=== PATIENT | male | born 1960 | race Caucasian/White ===

== ENCOUNTER 2025-02-19 15:25 | Observation (INO) | payer OTHER, SELFPAY ==
[2025-02-19] VITALS (11 sets, daily range): BP systolic 127–204; BP diastolic 66–105; BMI 27.3; BMI 25.6
--- NOTE | 2025-02-19 11:34 | ED.GENMED ---
History of Present Illness
General
Chief Complaint: Visual Problem
Source: patient and spouse
Time Seen by Provider: 02/19/25 11:17
History of Present Illness
History of Present Illness:
64-year-old male with past medical history of hypertension, hyperlipidemia, ovh-xmfpqhm-rklwgldti diabetes presenting to the ER for evaluation of painless double vision that started yesterday around noon, constant and continued today prompting
to bring patient to the ER for further evaluation. Patient states that initially he felt his vision was a little bit more blurred but the vision became double, noticed that when he covered either right or left eye that the double vision would
resolve. Patient denies any headache, focal weakness or numbness, chest pain, shortness of breath, floaters or flashing light sensation, neck pain or stiffness, fevers or infectious symptoms or any other concerns. Denies any history of similar.
Patient follows regularly with ophthalmology due to his history of diabetes and notes that he has never had any abnormalities. Patient does not believe he has any family history of stroke but believes his mother may have had glaucoma as she did
eventually have blindness to 1 eye which she states was related to her eye pressures. Social history was otherwise noncontributory.
Past History
Past History
ED Past Medical History: GERD, HTN, Hypercholesterolemia and NIDDM
ED Past Surgical History: Other
Social History
Tobacco: Non-smoker
Alcohol: None
Drug: None
Personal:
Living: with family
Review of Systems
Review of Systems
All Other Systems: ROS reviewed and negative except as documented in HPI and ROS
Phy Exam
Physical Exam
Physical Exam:
GENERAL: Alert , in no apparent distress
HEAD: Normocephalic atraumatic
EYE: pupils equal and reactive, pupils 4 mm bilateral, EOMI, no visual field cuts, gross vision intact and equal bilateral
NECK: Supple, no meningismus
ENT: o/p clr, mmm.
CARDIAC: Regular rate and rhythm, faint systolic murmur at the left sternal border.
LUNGS: Clear breath sounds bilaterally, no acute respiratory distress, no wheezes/rales/rhonchi
NEUROLOGICAL: Alert and oriented, no focal neuro deficits, ambulated with steady gait, no dysmetria, no dysarthria, no aphasia, no facial drooping
SKIN: Warm and dry, skin intact.
MUSCULOSKELETAL: No edema, well perfused.
PSYCH: Normal and appropriate interaction.
Scores
NIH Stroke Score
Level of Consciousness: 0 - Alert
LOC Questions: 0-Answers both correctly
LOC Commands: 0-Performs both correctly
Best Horizontal Gaze: 0-Normal
Visual [place]: 0=Normal, no visual loss
Facial Palsy: 0=Normal, symmetrical
Motor - Right Arm: 0=No drift 10 seconds
Motor - Left Arm: 0=No drift 10 seconds
Motor - Right Le-No drift 5 seconds
Motor - Left Le-No drift 5 seconds
Limb Ataxia: 0-Absent
Sensation: 0-Normal
Best Language: 0-No aphasia
Dysarthria: 0-Normal
Extinction and Inattention: 0-No abnormality
Total Score:: 0
Heart Failure Risk
Heart Failure Risk Score: Not Applicable
Heart Score for Chest Pain Patients
STEMI patient?: Not applicable
Withdrawal Assessment of Alcohol
Withdrawal Assessment Completed?: Not applicable
Course
Orders/Labs/Results
Orders:
Orders
02/19/25 11:26
Electrocardiogram (*1) Stat
Reason for Study: Other
Other Reason for Exam: neuro symptoms
CT Head & Neck Angio W/wo IV Urgent
Comment:
Reason For Exam: double vision, BP 200/100
Cardiac Monitoring- Treatment ONCE
EKG- Treatment ONCE
02/19/25 11:34
Visual Acuity- Treatment ONCE
02/19/25 11:52
Basic Metabolic Panel Urgent
Complete Blood Count/With Diff Urgent
Erythrocyte Sed Rate Urgent
PTT Urgent
Prothrombin Time Urgent
Troponin I Urgent
02/19/25 13:18
Aspirin 325 mg PO NOW STA
Clopidogrel Bisulfate [Plavix] 75 mg PO NOW STA
02/19/25 15:08
Admit/Transfer Patient As Directed
Co-Sign Provider:
Level of Care: Observation services
Assign to:: Telemetry
Physician / Group: Raphael Cohen
Diagnosis: CVA/TIA, CN6 palsy
Reason for Telemetry: CVA/TIA
Date to Stop Telemetry: 02/22/25
Time to Stop Telemetry: 11:00
PRN Pain Medication Management As Directed
May give lesser potent ordered pain med per pt: Yes
preference::
Protocol:: Medication orders for pain may be administered in a
manner that supports deferring to patient preference
when the pt is:
- Requesting an ordered lesser potent pain medication.
Least to most potent pain medications are defined
as: acetaminophen < NSAID < tramadol < opioids
(morphine, oxycodone, hydromorphone).
- Requesting a lesser dose of the same medication IF
ORDERED.
- Requesting a less intrusive route of administration
if both routes are prescribed by the provider (PO <
IV).
02/19/25 15:13
Code Status As Directed
Resuscitation Status: Full Code
02/19/25 15:16
Add On- LAB Routine
Tests Added?: CMP
02/22/25 11:00
DC Protocol for Telemetry ONCE
Abnormal Lab Results
02/19/25
11:52
RBC 4.41 L 10^6/uL
(4.70-6.10)
Hct 37.3 L %
(39.0-52.0)
Glucose 138 H mg/dl
(70-99)
02/19/25 11:52
02/19/25 11:52
Vital Signs
Initial and Last Documented VS:
Initial Vital Signs
Temp Pulse Resp BP Pulse Ox
97.5 F 64 16 204/98 97
02/19/25 11:07 02/19/25 11:07 02/19/25 11:07 02/19/25 11:07 02/19/25 11:07
Last Documented Vital Signs
Temp Pulse Resp BP Pulse Ox
97.5 F 69 18 185/91 97
02/19/25 11:07 02/19/25 14:00 02/19/25 15:00 02/19/25 14:00 02/19/25 12:45
Certified Energy Manager consulted with Physician
Certified Energy Manager consulted with physician?: Yes
Name of Physician Consulted: Marcos
MDM/Problems Addressed
Differential Diagnosis Includes:
hypertensive urgency/emergency, CVA, retinal detachment/diabetic retinopathy, mass/malignancy, intracranial bleeding
MDM/Problems Addressed:
64-year-old male presented to the ER for painless blurred/double vision since noon yesterday, symptoms unchanged today. Found to be significantly hypertensive in triage as well as at time of my exam. I did not call a stroke alert as symptoms have
been ongoing for approximately 24 hours, low NIH score, not a TNK candidate. Will obtain plain head CT as well as CTA of the head and neck. Labs and EKG ordered. Will hold on ordering any antihypertensive medications at this time and will allow
for permissive hypertension. Will discuss case with neurology. I do anticipate admission.
*Radiology
Radiology exam reviewed: radiology read reviewed
*Pulse Oximetry
Patient hypoxic: no
*EKG
Interpreted by ED Provider?: Yes
Heart Rate: 58
Rate: bradycardiac
Rhythm: sinus
Interval: first degree heart block
QRS Pattern: right bundle branch block
*Material Attendant Interpretation
Rate: normal
Rhythm: sinus
*Critical Care Note
Total Time (30-74mins, 75-104mins- exclusive of procedures): Not Applicable
Patient Management
Discussion with other providers: Hospitalist and [employer]
Escalation/DeEscalation of care consider admission/obs:
Patient seen by neurology who is concerned for a pontine stroke and a cranial nerve palsy. Recommends treatment with dual action platelet therapy and admission to the hospitalist service for further imaging and management/close monitoring of
patient's blood pressure. Hospitalist team accepts for continued evaluation and treatment
ED Attending Note
-
Portions of this chart may have been created with voice recognition software.� Occasional wrong word or��sound alike� substitutions may have occurred due to the inherent limitations of voice recognition software.
Discharge Plan
Departure
Patient Disposition: Admit
Date of Disposition: 02/19/25
Time of Disposition: 14:30
Presentation/result/management discussed w/ accepting MD/DO: Hospitalist
Discharge Problem:
Ischemic cerebrovascular accident (CVA)
Interventions
Interventions:
*Risk Screen - Suicide Last Done: 02/19/25 11:07
*General Assessment Last Done: 02/19/25 12:02
*Neglect/Abuse Screening Last Done: 02/19/25 12:03
*ED- Fall Risk Assessment Last Done: 02/19/25 12:02
*ED COVID-19 Vaccine History Last Done: 02/19/25 12:02
ED- Neurological Assessment Last Done: 02/19/25 15:31
ED-EENT Assessment Last Done: 02/19/25 12:05
ED Swallowing Screen Last Done: 02/19/25 12:00
[2025-02-19 12:05] LABS: % Basophils 0.6 % (0-2); % Eosinophils 2.1 % (0-6); % Immature Granulocytes 0.5 % (0-0.5); % Lymphocytes 32.2 % (20.5-51.1); % Monocytes 6.9 % (1.7-9.3); % Neutrophils 57.7 % (42.2-75.2); Absolute Basophils 0.1 10^3/uL (0-0.2); Absolute Eosinophils 0.2 10^3/uL (0-0.7); Absolute Lymphocytes 2.6 10^3/uL (1.2-3.4); Absolute Monocytes 0.6 10^3/uL (0.1-0.6); Absolute Neutrophils 4.6 10^3/uL (1.4-6.5); Hematocrit 37.3 % (39.0-52.0); Hemoglobin 13.1 g/dL (13.0-18.0); Mean Corp Hgb Conc. 35.1 g/dL (33.0-37.0); Mean Corpuscular Hgb 29.7 pg (27.0-31.0); Mean Corpuscular Volume 84.6 fL (80.0-94.0); Mean Platelet Volume 9.5 fL (7.4-10.4); Nucleated Red Blood Cells % 0 % (-); Platelet Count 226 10^3/uL (130-400); Red Blood Cell Count 4.41 10^6/uL (4.70-6.10); Red Cell Dist. Width 12.3 % (11.5-14.5)
[2025-02-19 12:10] LABS: INR 0.89; PT 12.4 Sec (11.4-14.6)
[2025-02-19 12:11] LABS: APTT 28.6 Sec (23.4-35.0)
[2025-02-19 12:15] LABS: Blood Urea Nitrogen 16 mg/dl (9-20); Calcium 9.4 mg/dl (8.4-10.2); Carbon Dioxide 27 mmol/L (22-30); Chloride 105 mmol/L (98-107); Estimated Creatinine Clearance 97 ml/min; Glucose 138 mg/dl (70-99); Potassium 4.4 mmol/L (3.5-5.1); Sodium 141 mmol/L (135-145); eGFR > 60.00
[2025-02-19 12:23] LABS: Erythrocyte Sed Rate 1 mm/hour (0-20)
[2025-02-19 12:26] LABS: Troponin I < 0.012 ng/ml
--- NOTE | 2025-02-19 13:24 | CON.NEURO ---
Neuro Assessment/Plan
Assessment
stroke Left Hima on exam
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
Head CT imgs rev'd, normal
CTA head/neck imgs and report reviewed, no LVO, significant stenosis, or aneurysms.
Plan
ASA 324 + 81 daily
Plavix 300 + 75 daily
Lipitor 40
admit, tele, MRI brain, ECHO
completed 24 hrs permissive HTN
Consultation
Order
Date of Consultation: 02/19/25
Requesting Provider: Sander Myrick
Reason for Consult: double vision
Subjective/Objective
Subjective Data
Date of Service: February 19, 2025
from ED notes:
64-year-old male with past medical history of hypertension, hyperlipidemia, vdz-rwqtlml-yjfjcqpcg diabetes presenting to the ER for evaluation of painless double vision that started yesterday around noon, constant and continued today prompting
to bring patient to the ER for further evaluation. Patient states that initially he felt his vision was a little bit more blurred but the vision became double, noticed that when he covered either right or left eye that the double vision would
resolve. Patient denies any headache, focal weakness or numbness, chest pain, shortness of breath, floaters or flashing light sensation, neck pain or stiffness, fevers or infectious symptoms or any other concerns. Denies any history of similar.
Patient follows regularly with ophthalmology due to his history of diabetes and notes that he has never had any abnormalities.
horizontal binocular diplopia, the pictures align with right gaze and diverge with left gaze
Objective Data
Vital Signs
Temp Pulse Resp BP Pulse Ox
36.4 C 67 19 158/100 96
02/19/25 11:07 02/19/25 12:15 02/19/25 12:15 02/19/25 12:00 02/19/25 12:15
Lab Results
02/19/25 11:52
02/19/25 11:52
PT 12.4 Sec (11.4-14.6) 02/19/25 11:52
INR 0.89 02/19/25 11:52
APTT 28.6 Sec (23.4-35.0) 02/19/25 11:52
Sodium 141 mmol/L (135-145) 02/19/25 11:52
Potassium 4.4 mmol/L (3.5-5.1) 02/19/25 11:52
BUN 16 mg/dl (9-20) 02/19/25 11:52
Glucose 138 mg/dl (70-99) H 02/19/25 11:52
Calcium 9.4 mg/dl (8.4-10.2) 02/19/25 11:52
Patient Allergies
strawberry Allergy (Verified 02/19/25 11:10)
Unknown
Physical Exam
-
AAOx3, speech clear, language intact
VFF, EOMI, L NL flattening
Right pronator drift, subtle right sided weakness
sensation intact to pin/vibration
DTR 2+ symmetric
FNF intact
[2025-02-19] MEDS: PLAVIX 75 MG PO (13:30)
[2025-02-19] MEDS: ASPIRIN 325 MG PO (13:30)
--- NOTE | 2025-02-19 14:42 | HPS.HSE ---
Family Physician
-
Family Physician: Shen Ferreira
Chief Complaint
-
double vision
History of Present Illness
Patient is a 64-year-old male with past medical history significant for hypertension, hyperlipidemia, NIDDM and BPH who presented to [facility] for evaluation of double vision that started yesterday around noon. Patient reports yesterday he was getting
ready to leave house and when he walked outside he noticed that he was seeing double. He denies any pain and reports double vision was an abrupt onset with no improvement since yesterday. Patient states if he covers one eye the double vision does
resolve, when utilizing both eyes he is constantly having double vision. Patient denies any associated headache, weakness, dizziness, chest pain, shortness of breath or recent illness. Patient reports he follows routinely with ophthalmology r/t DM
and has never had an abnormalities.
Medical History
Past Medical History
Past Medical History: Reports Other
Additional Past Medical History:
hypertension
hyperlipidemia
NIDDM
BPH
Past Surgical History: Reports Other
Additional Past Surgical History:
hernia repair
Social History
Tobacco: Former Smoker (quit approximately 9 years ago )
Alcohol: Occasional
Drug: None
Personal:
Living: With Family
Employment: Retired
Family History
Family History: Other (Mother: CVA)
Allergies / Home Medications
Allergies reflects when Allergies were last updated in [employer].
Home Medications with original date entered in [employer]
Allergy/Medication List:
Allergies
Allergy/AdvReac Type Severity Reaction Status Date / Time
strawberry Allergy Unknown Verified 02/19/25 11:10
Home Medications
amlodipine 2.5 mg tablet 2.5 mg PO DAILY 02/19/25
aspirin 81 mg tablet,delayed release 81 mg PO DAILY 02/19/25
atorvastatin 20 mg tablet 20 mg PO HS 02/19/25
cyanocobalamin (vitamin B-12) 1,000 mcg tablet 1,000 mcg PO DAILY 02/19/25
glimepiride 2 mg tablet 2 mg PO DAILY 02/19/25
icosapent ethyl 1 gram capsule 1 g PO DAILY 02/19/25
metformin 1,000 mg tablet 1,000 mg PO BID 02/19/25
metoprolol succinate 50 mg tablet,extended release 24 hr 50 mg PO HS 02/19/25
olmesartan 40 mg tablet 40 mg PO HS 02/19/25
tamsulosin 0.4 mg capsule 0.4 mg PO HS 02/19/25
vitamins A,C,T-zlmx-qwdbqn 4,296 mcg-226 mg-90 mg capsule (PreserVision AREDS) 1 cap PO DAILY 02/19/25
Review of Systems
-
History Source: Patient
Constitutional: Reports No Symptoms
EENT: Reports Other (double vision )
Respiratory: Reports No Symptoms
Cardiac: Reports No Symptoms
Abdomen/GI: Reports No Symptoms
: Reports No Symptoms
Musculoskeletal: Reports No Symptoms
Skin: Reports No Symptoms
Neurological: Reports No Symptoms
Endocrine: Reports No Symptoms
Hematologic/Lymphatic: Reports No Symptoms
Psych: Reports No Symptoms
Physical Exam
Vital Signs
Vital Signs
Temp Pulse Resp BP Pulse Ox
97.5 F 69 18 185/91 97
02/19/25 11:07 02/19/25 14:00 02/19/25 14:00 02/19/25 14:00 02/19/25 12:45
Physical Exam
General: Well Developed, Well Nourished, No Apparent Distress, Comfortable and Conversant
HEENT: NormoCephalic, Moist mucous membranes, Atraumatic, PERRLA, [place] Conjunctivae, Nose Appears Normal and Ears Appear Normal
Respiratory: Clear; No Rales, Rhonchi or Crackles
Cardiac: S1/S2 and Regular Rhythm
Breast: Deferred by me
GI: Soft, Non Tender, Non Distended and Normal Bowel Sounds; No Organomegaly
Rectal: Deferred by Provider
Genito-urinary: Deferred by me
Musculoskeletal: No Clubbing, No Cyanosis and No Edema
Skin: Warm and IV/Catheter Site
Neuro: Awake, Alert, AO x 3, Nonfocal/grossly intact, Cranial Nerves Intact and No Sensory Deficits; No Facial Droop
Psych: Calm and Intact Judgment/Insight
Laboratory Results
-
02/19/25 11:52
02/19/25 11:52
Laboratory Results
PT 12.4 Sec (11.4-14.6) 02/19/25 11:52
INR 0.89 02/19/25 11:52
APTT 28.6 Sec (23.4-35.0) 02/19/25 11:52
Troponin I < 0.012 ng/ml 02/19/25 11:52
Data Reviewed
-
CT Scan: Report Reviewed by me (CT Brain: No acute intracranial process. Specifically, no evidence of acute hemorrhage. CTA Head: No significant arterial stenosis. No aneurysm. CTA Neck: No significant arterial stenosis. Moderate degenerative disc
disease of C5-C6. )
Medical Tests (Nuc Med, Echo, EKG etc): Report Reviewed by me (EKG: SINUS BRADYCARDIA WITH 1ST DEGREE A-V BLOCK RIGHT BUNDLE BRANCH BLOCK)
Lab Data: Labs Reviewed by me
Impression/Plan
-
IMPRESSION/PLAN:
#diplopia
CT Brain: No acute intracranial process. Specifically, no evidence of acute hemorrhage.
CTA Head: No significant arterial stenosis. No aneurysm.
CTA Neck: No significant arterial stenosis. Moderate degenerative disc disease of C5-C6.
EKG: SINUS BRADYCARDIA WITH 1ST DEGREE A-V BLOCK
RIGHT BUNDLE BRANCH BLOCK
- Admit to telemetry
- Neurology Consult
- start Plavix
- PRN hydralazine 5mg q6H SD for SBP > 165, DBP > 105
#hypertension
- continue amlodipine, metoprolol and olmesartan
- PRN hydralazine 5mg q6H SD for SBP > 165, DBP > 105
#hyperlipidemia
- continue atorvastatin
#NIDDM
- hold
- AccuCheck AC & HS
- SSI
#BPH
- continue tamsulosin
Code status: full code
DVT prophylaxis: SCDs
--- NOTE | 2025-02-19 14:55 | W.PN.UPDATE ---
Update Note
Progress Note Update
This note serves as an addendum to the H&P by outreach associate ZHANNA Radha Sheridan
HPI
64M Non smoker , Rt handed HX T2DM, HTN, HLD seen at ER
- painless and constant double vision that started yesterday around noon,
- today prompting to bring patient to the ER for further evaluation.
- Initially he felt his vision was a little bit more blurred but the vision became double, noticed that when he covered either right or left eye that the double vision would resolve.
Patient follows regularly with ophthalmology due to his history of diabetes and notes that he has never had any abnormalities.
ROS:
denies any headache, focal weakness or numbness, chest pain, shortness of breath, floaters or flashing light sensation, neck pain or stiffness, fevers or infectious symptoms or any other concerns.
Vital Signs
Temp Pulse Resp BP Pulse Ox
97.5 F 69 18 185/91 97
02/19/25 11:07 02/19/25 14:00 02/19/25 14:00 02/19/25 14:00 02/19/25 12:45
PE
Gen: NAD. Not toxic
HEENT:symmetric face
Neck: supple
Lungs: CTA
Cor: RRR S1 S2
Abdomen: soft NG NRT
QUANTITATIVE MANAGER: ER BUTCHER ASSISTANT NIH stroke score - Zero
MS: no edema , symmetric tone and strength in all limbs
Psych:appropriate
Abnormal Lab Results
02/19/25
11:52
RBC 4.41 L
Hct 37.3 L
Glucose 138 H
EKG
SINUS BRADYCARDIA WITH 1ST DEGREE A-V BLOCK
RIGHT BUNDLE BRANCH BLOCK
ABNORMAL ECG
NO PREVIOUS ECGS AVAILABLE
Confirmed by MD LENNY, SHEMAR ([id number]) on 02/19/2025 2:16:[address] Head & Neck Angio W/wo IV
- CT Brain: No acute intracranial process. Specifically, no evidence of acute hemorrhage.
- CTA Head: No significant arterial stenosis. No aneurysm.
- CTA Neck: No significant arterial stenosis. Moderate degenerative disc disease of C5-C6.
ASSESSMENT & PLAN
Acute diplopia for more than 24 Hrs
Seen by Neurologist and Dxed Pontine stroke with CN6 palsy
Associated HTN emergency
- No stroke alert called
- Goal BP is Normotensive - d/w Neuro
- c/w DAPL
- Increased Atorvastatin to 40mg HS in place of DIE MAKER APPRENTICE 20mg HS
- A1C and Lipds
- ECHO
- Brain MRI in AM
- Neuro consulted
Associated HTN emergency
HX Benign HTN
- Goal BP is normotensive - d/w Neuro
- add IV Hydralazine 5mg q6H NC for SBP > 165, DBP > 105
- c/w DIE MAKER APPRENTICE Olmesartan , Amlodipine and Metoprolol XL if SBP < 115/65
DMT2
- Hold Metformin
- c/w Glimepiride 2mg daily
- add ISS low
BPH
- on Flomax
DVT Px: SCD
Full code
IP TLM
--- NOTE | 2025-02-19 15:18 | CM ---
CM met with pt, spouse/Mona and dtr/Yolanda
Pt resides with his spouse in a 2[address] with 1 [address], full flight to 2nd floor
Pt is indep with his ADLs, denies use of DMEs
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
Denies financial insecurities
PCP- Shen Watts
Rx- [facility]
Discharge Disposition- anticipate home, watch for needs
[2025-02-19] MEDS: APRESOLINE 5 MG IV (16:07)
[2025-02-19 16:48] LABS: ALT (SGPT) 22 U/L (0-50); AST (SGOT) 22 U/L (17-59); Albumin 4.3 g/dl (3.5-5.0); Alkaline Phosphatase 82 U/L (38-126); Total Bilirubin 0.8 mg/dl (0.2-1.3); Total Protein 6.8 g/dl (6.3-8.2)
[2025-02-19] MEDS: TRANDATE 10 MG IV (17:52)
[2025-02-19 17:53] LABS: Glucose - Point of Care 180 mg/dl (70-99)
[2025-02-19] MEDS: LIPITOR 40 MG PO (17:54)
[2025-02-19] MEDS: NOVOLOG FLEXPEN-LOW RESISTANCE 1 UNITS SC (18:07)
[2025-02-19 21:14] LABS: Glucose - Point of Care 161 mg/dl (70-99)
[2025-02-19] MEDS: TOPROL XL 50 MG PO (21:49)
[2025-02-19] MEDS: BENICAR 40 MG PO (21:49)
[2025-02-19] MEDS: FLOMAX 0.4 MG PO (21:49)
[2025-02-20 03:07] VITALS: BP 111/61
[2025-02-20 04:32] LABS: Urine Albumin Negative (Neg - Trace); Urine Bilirubin Negative (Negative); Urine Character Clear (Clear); Urine Color Yellow; Urine Glucose Negative (Negative); Urine Ketone Negative (Negative); Urine Leukocyte 1+ (Negative); Urine Nitrite Negative (Negative); Urine Occult Blood 1+ (Negative); Urine Specific Gravity 1.005 (<1.030); Urine Urobilinogen Negative (Neg - 1+)
[2025-02-20 05:04] LABS: Urine Bacteria Few (Negative); Urine White Cell 0-2 /HPF (0-5)
--- NOTE | 2025-02-20 07:12 | W.PN.HOSP.TC ---
Addendum entered and electronically signed by Dewayne Sarkar MD 02/20/25 22:49:
Attending Addendum:
I saw and evaluated the patient. I reviewed the resident�s note and agree with findings and plan as documented in the resident�s note. Sub: continues to have diplopia no other neuro sx. Seen with and daughter. No 'i would like to go home' Full
12 point ROS reviewed and negative except as documented Exam: Vitals reviewed in chart GEN-NAD heart RRR lungs clear abd soft LE no edema Neuro AAO x 3 diplopia resolved with closing left eye no ptosis EOMI no palsies noted MS 5/5 sensation intact
Plan:
#Monocular diplopia
CT Brain: No acute intracranial process. Specifically, no evidence of acute hemorrhage.
CTA Head: No significant arterial stenosis. No aneurysm.
CTA Neck: No significant arterial stenosis. Moderate degenerative disc disease of C5-C6.
EKG: SINUS BRADYCARDIA WITH 1ST DEGREE A-V BLOCK
RIGHT BUNDLE BRANCH BLOCK
- Neurology Consult
- start Plavix
- cont DAPT x 21 days then cont plavix DC asa therafter
- MRI- no acute infacrt
- Echo WNL No WMA ef 65-70%
- PT OT speech
- DC home with OP f/u optho eval d/w patient and family
#Hypertension
- continue amlodipine, metoprolol and olmesartan
- PRN hydralazine 5mg q6H VA for SBP > 165, DBP > 105
#hyperlipidemia
- continue atorvastatin
#NIDDM
- restart glim and metformin on DC
- AccuCheck AC & HS
- SSI
#BPH
- continue tamsulosin
Code status: full code
DVT prophylaxis: SCDs
Dispo DC home with
Time spent coordinating care, DC planning, review of DC plan of care with resident, transition of care, review of records, med rec/scripts sent electronically, consults, notes, d/w consultants, nursing, family, and CM� 33 mins
Original Note:
Today's Communication/Plan
-
Pending ECHO
Pending Brain MRI
D/c on 21d Aspirin/Plavix
Assessment / Plan
Assessment / Plan
64 year old man who presented with complaints of double vision
CT Head & Neck Angio W/wo IV
- CT Brain: No acute intracranial process. Specifically, no evidence of acute hemorrhage.
- CTA Head: No significant arterial stenosis. No aneurysm.
- CTA Neck: No significant arterial stenosis. Moderate degenerative disc disease of C5-C6.
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
- neuro following; appreciate recs
- C/w DAPT
- Increased Atorvastatin to 40mg
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
- pending Echo today
- Pending MRI Brain today
#Hypertensive Urgency
- 204/98, with other initial readings in the 180s-190s/90-100s w/o ACS symptoms
- Troponin negative
- ECG showing sinus pedro w/ 1st degree block
- Hydralazine prn
- reports a diagnosis of sleep apnea but does not use CPAP. Explained to him the value of CPAP, the consequences of not using one including worsening BPs despite triple medications, and that increased/uncontrolled BP can lead to stroke.
#Essential Hypertension - c/w home amlodipine, metoprolol succinate, olmesartan
#Hyperlipidemia
- pending lipid panel
- c/w atorvastatin (increased to 40mg as above), aspirin
#NIDDM
- pending A1C
- c/w hold metformin/Vascepa, c/w glimepiride
- On LDISS
#BPH - c/w tamsulosin
#Vitamin B12 Deficiency - c/w B 12 supplementation
Diet: Diabetic Diet
DVT PPx: SCDs
Code Status: Full Code
Anticipated Discharge: 24 - 48 hours
Subjective/Interval History
-
Date of Service: February 20, 2025
Feeling well this morning, no CV symptoms. His vision has improved somewhat, still worse on the Left side. He reports that his vision is best when looking to the right and worsens as he looks toward the midline and then to the left. No headache, eye
pain, dizziness, visual field loss.
Objective Data
-
Vital Signs:
Vital Signs
Temp Pulse Resp BP Pulse Ox
97.6 F 57 18 111/61 96
02/20/25 03:07 02/20/25 03:07 02/20/25 03:07 02/20/25 03:07 02/20/25 03:07
Review of Systems
-
History Source: Patient
Constitutional: Reports No Symptoms
EENT: Reports Blurry Vision
Respiratory: Reports No Symptoms
Cardiac: Reports No Symptoms
Abdomen/GI: Reports No Symptoms
Genitourinary: Reports No Symptoms
Musculoskeletal: Reports No Symptoms
Neuro: Denies Dizzy, Headache or Lightheadedness
Physical Exam
-
General: Well Developed, Well Nourished, No Apparent Distress, Comfortable and Conversant
HEENT: Normocephalic, Atraumatic, Moist Mucous Membranes, Anicteric, [place] Conjunctivae, PERRLA, Nose Appears Normal, Ears Appear Normal and Other (EOM intact BL, L sided visual field deficit compared to the R. )
Respiratory: Clear to Auscultation; Negative Wheezes, Rales or Rhonchi
Cardiac: Regular Rhythm, S1/S2 and Murmur (Systolic murmur, w/ radiation into the carotids L>R)
GI: Soft, Nontender, Nondistended and Normal Bowel Sounds
Genito-urinary: No Costovertebral Tender
Musculoskeletal: No Clubbing, No Cyanosis and No Edema
Skin: Warm and Dry
Neuro: Awake, Alert and Oriented
[2025-02-20 07:36] VITALS: BP 164/87
[2025-02-20 07:44] LABS: Glucose - Point of Care 187 mg/dl (70-99)
[2025-02-20] MEDS: NOVOLOG FLEXPEN-LOW RESISTANCE 1 UNITS SC (08:11)
[2025-02-20] MEDS: NORVASC 2.5 MG PO (08:12)
[2025-02-20] MEDS: AMARYL 2 MG PO (08:12)
[2025-02-20] MEDS: OCUVITE SOFTGEL 1 CAP PO (08:12)
[2025-02-20] MEDS: VITAMIN B-12 1000 MCG PO (08:12)
[2025-02-20] MEDS: ASPIR LOW (ENTERIC COATED) 81 MG PO (08:12)
[2025-02-20 08:50] LABS: HDL Cholesterol 28 mg/dl; LDL Cholesterol, Calculated 91 mg/dl; Total Cholesterol 156 mg/dl (50-199); Triglyceride 186 mg/dl (10-149); Very Low Density Lipoprotein 37 mg/dl (0-30)
[2025-02-20 09:07] LABS: Glycohemoglobin (HgbA1c) 6.9 % (4.0-5.6)
--- NOTE | 2025-02-20 09:27 | PTOTSP ---
Dysphagia Eval
Oral/pharyngeal swallowing suspected to be grossly within functional limits based on clinical bedside swallowing evaluation. No overt s/s of aspiration. Cannot r/o silent aspiration bedside.
No signs concerning for dysarthria or aphasia in conversation.
Recommend:
1. Regular, Thin
2. Meds as best tolerated
3. General aspiration precautions
4. Oral care 2-3x day
5. Will f/u pending results of MRI of Brain (not yet completed). Consider video swallow study as appropriate to r/o pharyngeal deficits/silent aspiration if stroke found.
[2025-02-20 11:18] VITALS: BP 150/95
[2025-02-20] MEDS: PLAVIX 75 MG PO (11:21)
[2025-02-20 11:26] LABS: Glucose - Point of Care 231 mg/dl (70-99)
--- NOTE | 2025-02-20 11:43 | CON.NEURO ---
Neuro Assessment/Plan
Assessment
stroke Left Hima on exam
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
Head CT imgs rev'd, normal
CTA head/neck imgs and report reviewed, no LVO, significant stenosis, or aneurysms.
Plan
ASA 324 + 81 daily
Plavix 300 + 75 daily
Lipitor 40
admit, tele, MRI brain, ECHO
completed 24 hrs permissive HTN
Consultation
Order
Date of Consultation: 02/20/25
Neurology follow-up note
HPI: This is a 64-year-old man who presented to [facility] on February 19, 2025 with motor and visual deficits. According to the patient he has had intermittent binocular horizontal painless diplopia worse with left lateral gaze. No
reports of headaches, change in speech, strength, swallowing or sensation.
ER VS: 204/98, 64, afebrile
EKG: Sinus bradycardia at 58 with first-degree AV block, RBBB, QTc Int : 453 ms
Labs: LDL�91, hemoglobin A1c�6.9
Brain MRI wo [place] (02/20/2025)�no evidence of acute infarct
CTA�no evidence of hemodynamically significant stenosis
Brain MRI�no evidence of acute infarct
PMH: HTN, DLP, DM, vitamin B12 deficiency, BPH
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
FH: Father�Parkinson disease, stroke
All:NKDA
ROS: Constitutional: Negative. Negative for chills, fever and unexpected weight change.
HENT: Negative for ear pain, hearing loss, tinnitus and trouble swallowing.
Eyes: Negative. Negative for photophobia, pain and visual disturbance.
Respiratory: Negative for cough, choking and shortness of breath.
Cardiovascular: Negative for chest pain, palpitations and leg swelling.
Gastrointestinal: Negative for abdominal pain and vomiting.
Endocrine: Negative. Negative for cold intolerance.
Genitourinary: Negative for urinary urgency
Musculoskeletal: Negative for back pain, gait problem, neck pain and neck stiffness.
Skin: Negative for rash.
Allergic/Immunologic: Negative. Negative for immunocompromised state.
Neurological: Positive for diplopia
Psychiatric/Behavioral: Negative for behavioral problems, confusion and hallucinations.
General: Well developed. In no acute distress.
Cardio: Regular rate and rhythm without murmur. Extremities are without cyanosis or edema.
Neuro:
Mental Status: Alert, oriented to person, place, and date. Normal attention and recall. Good fund of knowledge. Follows complex requests across the midline. Comprehension, naming, and repetition intact.
Cranial Nerves: Pupils are equally round and reactive to light. EOMs full. Visual padilla full to confrontation. No ptosis. No nystagmus. V1-V3 intact to light touch and pinprick bilaterally, symmetric. Face symmetric. Normal hearing AU. The
palate elevated well. SCMs and traps 5/5. Tongue midline. No dysarthria.
Motor: Normal bulk and tone. No pronator or arm drift. Strength 5/5 throughout. No clonus.
Reflexes: 2+ throughout the upper extremities and knees. Plantar responses flexor bilaterally.
Sensory: Normal vibration and JPS.
Coordination: No dysmetria or tremor.
Gait: deferred
Assessment and Plan:
I. 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 Differential diagnosis includes disorders of muscle and restrictive syndromes (isolated weakness of lateral rectus muscle, thyroid eye disease or less likely myasthenia gravis), central disorders (spasm
of the near reflex).
II. Hypertensive emergency
III. DM
-Please provide an eye patch
-Continue DAPT for 3 weeks
-Outpatient ophthalmology evaluate
-May consider Mestinon 30-60 mg 3 times daily in case of ptosis, dysarthria should occur
- Strict blood pressure glycemic and lipid control
-Patient neurology follow-up
- Case was discussed with patient's family
I personally reviewed all radiology and labs along with past medical records pertinent to current medical problems. Total time spent in patient care is 45 minutes.
Thank you for allowing us to participate in the care of this patient. We will continue to follow. Please do not hesitate to contact us with any questions or concerns.
Subjective/Objective
Subjective Data
Date of Service: February 20, 2025
Objective Data
Vital Signs
Temp Pulse Resp BP Pulse Ox
36.9 C 69 19 150/95 98
02/20/25 11:18 02/20/25 11:18 02/20/25 11:18 02/20/25 11:18 02/20/25 11:18
Lab Results
02/19/25 11:52
02/19/25 11:52
PT 12.4 Sec (11.4-14.6) 02/19/25 11:52
INR 0.89 02/19/25 11:52
APTT 28.6 Sec (23.4-35.0) 02/19/25 11:52
Sodium 141 mmol/L (135-145) 02/19/25 11:52
Potassium 4.4 mmol/L (3.5-5.1) 02/19/25 11:52
BUN 16 mg/dl (9-20) 02/19/25 11:52
Glucose 138 mg/dl (70-99) H 02/19/25 11:52
Calcium 9.4 mg/dl (8.4-10.2) 02/19/25 11:52
LDL Cholesterol, Calc 91 mg/dl 02/20/25 07:00
Patient Allergies
strawberry Allergy (Verified 02/19/25 11:10)
Unknown
Medications
-
Active Medications
Generic Name Dose Route Start Last Admin
Trade Name Freq PRN Reason Stop Dose Admin
Acetaminophen 650 mg 02/19/25 16:47
Acetaminophen 325 Mg Tablet PO 03/19/25 16:46
Q4HPRN PRN
ALDANA, mild pain, or temp >100.4F
Amlodipine Besylate 2.5 mg 02/20/25 08:00 02/20/25 08:12
Amlodipine 2.5 Mg Tablet PO 03/20/25 07:59 2.5 mg
DAILY HUBERT Administration
Aspirin 81 mg 02/20/25 08:00 02/20/25 08:12
Aspirin 81 Mg (Enteric Coated) Tablet PO 03/20/25 07:59 81 mg
DAILY HUBERT Administration
Atorvastatin Calcium 40 mg 02/19/25 18:00 02/19/25 17:54
Atorvastatin (Lipitor) 40 Mg Tablet PO 03/19/25 17:59 40 mg
QPM HUBERT Administration
Clopidogrel Bisulfate 75 mg 02/20/25 10:00 02/20/25 11:21
Clopidogrel 75 Mg Tablet PO 03/20/25 09:59 75 mg
DAILY HUBERT Administration
Cyanocobalamin 1,000 mcg 02/20/25 08:00 02/20/25 08:12
Cyanocobalamin 1,000 Mcg Tablet PO 03/20/25 07:59 1,000 mcg
DAILY HUBERT Administration
Dextrose 12.5 grams 02/19/25 16:47
Dextrose 50% (0.5 Grams/Ml) 50 Ml Syringe IV 03/19/25 16:46
[id number] PRN
hypoglycemia
Protocol
Glimepiride 2 mg 02/20/25 08:00 02/20/25 08:12
Glimepiride 2 Mg Tablet PO 03/20/25 07:59 2 mg
DAILY HUBERT Administration
Glucagon 1 mg 02/19/25 16:47
Glucagon 1 Mg Vial IM 03/19/25 16:46
PRN PRN
hypoglycemia
Protocol
Hydralazine HCl 5 mg 02/19/25 15:59 02/19/25 16:07
Hydralazine 20 Mg/Ml Vial IV 03/19/25 15:58 5 mg
Q6HPRN PRN Administration
SBP > 165, DBP > 105
Insulin Aspart 0 units 02/19/25 16:47 02/20/25 08:11
Insulin Aspart Low Resistance 300 Units/3 Ml Pen.Injctr SC 03/19/25 16:46 1 units
AC HUBERT Administration
Protocol
Metoprolol Succinate 50 mg 02/19/25 22:00 02/19/25 21:49
Metoprolol 50 Mg Extended Release Tablet PO 03/19/25 21:59 50 mg
HS HUBERT Administration
Non-Formulary Medication 1 grams 02/20/25 08:00
Icosapent Ethyl PO 03/20/25 07:59
DAILY HUBERT
Olmesartan 40 mg 02/19/25 22:00 02/19/25 21:49
Olmesartan 20 Mg Tablet PO 03/19/25 21:59 40 mg
HS HUBERT Administration
Sodium Chloride 0 flush 02/19/25 18:00
Sodium Chloride 0.9% (Flush) Syringe IV 03/19/25 17:59
PER PROTOCOL HUBERT
Tamsulosin HCl 0.4 mg 02/19/25 22:00 02/19/25 21:49
Tamsulosin 0.4 Mg Capsule PO 03/19/25 21:59 0.4 mg
HS HUBERT Administration
Vitamin C/Vitamin E 1 cap 02/20/25 08:00 02/20/25 08:12
Vit C/Vit E/Lutein/Min/Harriman-3 (Ocuvite) Capsule PO 03/20/25 07:59 1 cap
DAILY HUBERT Administration
Home Medications
�Medication �Instructions �Recorded
amlodipine 2.5 mg tablet 2.5 mg PO DAILY 02/19/25
aspirin 81 mg tablet,delayed 81 mg PO DAILY 02/19/25
release
atorvastatin 20 mg tablet 20 mg PO HS 02/19/25
cyanocobalamin (vitamin B-12) 1,000 mcg PO DAILY 02/19/25
1,000 mcg tablet
glimepiride 2 mg tablet 2 mg PO DAILY 02/19/25
icosapent ethyl 1 gram capsule 1 g PO DAILY 02/19/25
metformin 1,000 mg tablet 1,000 mg PO BID 02/19/25
metoprolol succinate 50 mg 50 mg PO HS 02/19/25
tablet,extended release 24 hr
olmesartan 40 mg tablet 40 mg PO HS 02/19/25
tamsulosin 0.4 mg capsule 0.4 mg PO HS 02/19/25
vitamins A,C,X-eyod-ifwpyg 4,296 1 cap PO DAILY 02/19/25
mcg-226 mg-90 mg capsule
(PreserVision AREDS)
Vital Signs and Labs
-
Vital Signs and Labs:
Vital Signs
Temp Pulse Resp BP Pulse Ox
36.9 C 69 19 150/95 98
02/20/25 11:18 02/20/25 11:18 02/20/25 11:18 02/20/25 11:18 02/20/25 11:18
Lab Results
02/19/25 11:52
02/19/25 11:52
PT 12.4 Sec (11.4-14.6) 02/19/25 11:52
INR 0.89 02/19/25 11:52
APTT 28.6 Sec (23.4-35.0) 02/19/25 11:52
Sodium 141 mmol/L (135-145) 02/19/25 11:52
Potassium 4.4 mmol/L (3.5-5.1) 02/19/25 11:52
BUN 16 mg/dl (9-20) 02/19/25 11:52
Glucose 138 mg/dl (70-99) H 02/19/25 11:52
Calcium 9.4 mg/dl (8.4-10.2) 02/19/25 11:52
LDL Cholesterol, Calc 91 mg/dl 02/20/25 07:00
Medications
-
Medications:
Generic Name Dose Route Start Last Admin
Trade Name Freq PRN Reason Stop Dose Admin
Acetaminophen 650 mg 02/19/25 16:47
Acetaminophen 325 Mg Tablet PO 03/19/25 16:46
Q4HPRN PRN
ALDANA, mild pain, or temp >100.4F
Amlodipine Besylate 2.5 mg 02/20/25 08:00 02/20/25 08:12
Amlodipine 2.5 Mg Tablet PO 03/20/25 07:59 2.5 mg
DAILY HUBERT Administration
Aspirin 81 mg 02/20/25 08:00 02/20/25 08:12
Aspirin 81 Mg (Enteric Coated) Tablet PO 03/20/25 07:59 81 mg
DAILY HUBERT Administration
Atorvastatin Calcium 40 mg 02/19/25 18:00 02/19/25 17:54
Atorvastatin (Lipitor) 40 Mg Tablet PO 03/19/25 17:59 40 mg
QPM HUBERT Administration
Clopidogrel Bisulfate 75 mg 02/20/25 10:00 02/20/25 11:21
Clopidogrel 75 Mg Tablet PO 03/20/25 09:59 75 mg
DAILY HUBERT Administration
Cyanocobalamin 1,000 mcg 02/20/25 08:00 02/20/25 08:12
Cyanocobalamin 1,000 Mcg Tablet PO 03/20/25 07:59 1,000 mcg
DAILY HUBERT Administration
Dextrose 12.5 grams 02/19/25 16:47
Dextrose 50% (0.5 Grams/Ml) 50 Ml Syringe IV 03/19/25 16:46
[id number] PRN
hypoglycemia
Protocol
Glimepiride 2 mg 02/20/25 08:00 02/20/25 08:12
Glimepiride 2 Mg Tablet PO 03/20/25 07:59 2 mg
DAILY HUBERT Administration
Glucagon 1 mg 02/19/25 16:47
Glucagon 1 Mg Vial IM 03/19/25 16:46
PRN PRN
hypoglycemia
Protocol
Hydralazine HCl 5 mg 02/19/25 15:59 02/19/25 16:07
Hydralazine 20 Mg/Ml Vial IV 03/19/25 15:58 5 mg
Q6HPRN PRN Administration
SBP > 165, DBP > 105
Insulin Aspart 0 units 02/19/25 16:47 02/20/25 08:11
Insulin Aspart Low Resistance 300 Units/3 Ml Pen.Injctr SC 03/19/25 16:46 1 units
AC HUBERT Administration
Protocol
Metoprolol Succinate 50 mg 02/19/25 22:00 02/19/25 21:49
Metoprolol 50 Mg Extended Release Tablet PO 03/19/25 21:59 50 mg
HS HUBERT Administration
Non-Formulary Medication 1 grams 02/20/25 08:00
Icosapent Ethyl PO 03/20/25 07:59
DAILY HUBERT
Olmesartan 40 mg 02/19/25 22:00 02/19/25 21:49
Olmesartan 20 Mg Tablet PO 03/19/25 21:59 40 mg
HS HUBERT Administration
Sodium Chloride 0 flush 02/19/25 18:00
Sodium Chloride 0.9% (Flush) Syringe IV 03/19/25 17:59
PER PROTOCOL HUBERT
Tamsulosin HCl 0.4 mg 02/19/25 22:00 02/19/25 21:49
Tamsulosin 0.4 Mg Capsule PO 03/19/25 21:59 0.4 mg
HS HUBERT Administration
Vitamin C/Vitamin E 1 cap 02/20/25 08:00 02/20/25 08:12
Vit C/Vit E/Lutein/Min/Harriman-3 (Ocuvite) Capsule PO 03/20/25 07:59 1 cap
DAILY HUBERT Administration
Home Medications
-
Home Medications
amlodipine 2.5 mg tablet 2.5 mg PO DAILY 02/19/25
aspirin 81 mg tablet,delayed release 81 mg PO DAILY 02/19/25
atorvastatin 20 mg tablet 20 mg PO HS 02/19/25
cyanocobalamin (vitamin B-12) 1,000 mcg tablet 1,000 mcg PO DAILY 02/19/25
glimepiride 2 mg tablet 2 mg PO DAILY 02/19/25
icosapent ethyl 1 gram capsule 1 g PO DAILY 02/19/25
metformin 1,000 mg tablet 1,000 mg PO BID 02/19/25
metoprolol succinate 50 mg tablet,extended release 24 hr 50 mg PO HS 02/19/25
olmesartan 40 mg tablet 40 mg PO HS 02/19/25
tamsulosin 0.4 mg capsule 0.4 mg PO HS 02/19/25
vitamins A,C,M-aydl-bdbhbm 4,296 mcg-226 mg-90 mg capsule (PreserVision AREDS) 1 cap PO DAILY 02/19/25
[2025-02-20] MEDS: NOVOLOG FLEXPEN-LOW RESISTANCE 2 UNITS SC (11:50)
[2025-02-20 14:41] VITALS: BP 147/89; PULSE 67; O2SAT 95
--- NOTE | 2025-02-20 14:51 | PTOTSP ---
pt currently requires supervision to no assistance to complete simple ADLs, functional transfers, ambulation. pt reports blurry vision, appears normal with one eye occluded. educated pt on need for assistance with IADLs, including driving. pt and
spouse verbalized understanding. spouse is available to assist as needed. no acute OT needs identified at this time, will sign off.
[2025-02-20 15:08] VITALS: BP 143/83
--- NOTE | 2025-02-20 16:07 | CM ---
Chart reviewed. Patient is stable for d/c today
PT/OT assessed, no skilled needs at this time
Met w/ patient and spouse bedside, agreeable to d/c today
IMM verbally reviewed, patient given copy, copy placed on chart
Plan: Home; no needs
--- NOTE | 2025-02-20 17:09 | W.DCSUMMARY ---
Addendum entered and electronically signed by Dewayne Sarkar MD 02/20/25 22:49:
Read, reviewed, and agree. See same day progress note for additional details.
Tomi Sarkar MD
Original Note:
Documented by User: Marty Balderas MD, Resident 02/20/25 18:11
Discharge Summary
Discharge Data
Date of Admission: 02/19/25
Date of Discharge: 02/20/25
Total time spent discharging patient (in min): >30m
-
Pending Results: No
Hospital Course
Discharging Physician : Dr. Marty Balderas, Dr. Dewayne Sarkar
Disposition : Home
Primary care physician : Dr. Shen Watts
Principal Discharge diagnosis : CVA, Hypertensive Urgency
Chronic Discharge diagnosis : Essential Hypertension, Hyperlipidemia, NIDDM, BPH, Vitamin B12 Deficiency
Hospital Course :
64 year old man who presented with complaints of double vision
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
- Started on DAPT, to continue for 21 day course
- Increased Atorvastatin to 40mg
- MRI as below shows no evidence of acute infarct. CTA showed no significant stenosis in the arteries of the head, neck, or brain.
- Echo showed no thrombus
- Was on aspirin [employer] from [employer], yet still developed stroke. Suspect component of uncontrolled HTN (possibly due to BENNY). However, since he was on ASA and still developed CVA, would c/w Plavix only after 21 day treatment.
- Information given for Neuro follow up with Dr. Kline
#Hypertensive Urgency
- 204/98 on admission without acute symptoms. Other readings in the 180s-190s/90-100s.
- Troponin negative
- ECG showing sinus pedro w/ 1st degree block
- Given one dose of Hydralazine
- Pressures quickly improved throughout stay and there was no more hypertensive urgency.
- reports a diagnosis of sleep apnea but does not use CPAP. Explained to him the value of CPAP, the consequences of not using one, including worsening BPs despite triple medications, and that increased/uncontrolled BP can lead to stroke. He
expressed newfound awareness of the importance of treating this condition and says he will follow up with PCP for further tx and CPAP machine.
- Advised to follow up with cardiology outpatient for further management.
#Essential Hypertension - managed on home amlodipine, metoprolol succinate, olmesartan and hydralazine prn as above.
#Hyperlipidemia
- Lipid panel showing TGs 186, TC 156, LDL 91, HDL 28. LDL above likely goal of <55.
- Atorvastatin increased to 40mg as above and sent to patient's pharmacy to continue taking.
#NIDDM
- A1c was controlled at 6.9
- Held metformin/Vascepa, continued on Glimepiride.
- Sugars remained controlled during admission.
- D/c'd home on home medications without changes to regimen.
#BPH - managed with Tamsulosin
#Vitamin B12 Deficiency - continued on B 12 supplementation
Important imaging findings :
CT Head & Neck Angio W/wo IV:
CT Brain: No acute intracranial process. Specifically, no evidence of acute hemorrhage.
CTA Head: No significant arterial stenosis. No aneurysm.
CTA Neck: No significant arterial stenosis. Moderate degenerative disc disease of C5-C6.
MR Brain Without Contrast:
No MRI evidence for an acute infarct.
Echocardiogram:
CONCLUSIONS
Normal left ventricular size and systolic function. No regional wall motion
abnormalities are seen. LV ejection fraction is 65-70% by Ferraro's method of
discs. Mild concentric left ventricular hypertrophy.
Mild, eccentric mitral regurgitation.
No evidence of cardiac source of embolus, consider SHANTEL if clinically indicated
No prior study available for comparison.
Procedure findings :
None.
Discharge Plan
-
Patient Disposition: Home (Routine Discharge)
Discharge Diagnosis/Procedures: CVA
Diet: Low Cholesterol and Diabetic, Carb Controlled
Activity: As tolerated
Driving Restrictions: As prior to admission
Activity Restrictions/Additional Instructions:
Please follow up with Primary Care Doctor regarding history of Obstructive Sleep Apnea and starting a CPAP machine.
Referrals:
Doreen Kline MD [Active] - in two to four weeks
Shen Watts MD [Family Provider] - (Discuss Obstructive Sleep Apnea and the use of CPAP)
Additional Discharge Medication Instructions: Take 81mg Aspirin for 19 days to complete 21 day course, then STOP.
Take 75mg Clopidogrel (Plavix) for 19 days to complete 21 day course, then CONTINUE INDEFINITELY.
Start taking 40mg Atorvastatin in place of Atorvastatin 20mg.
FOLLOW UP WITH CARDIOLOGY & PRIMARY CARE
Prescriptions:
New
atorvastatin 40 mg Tablet
40 mg PO QPM 30 Days Qty: 30 4RF
clopidogrel 75 mg Tablet
75 mg PO DAILY 19 Days Qty: 19 0RF
clopidogrel 75 mg tablet
75 mg PO DAILY 30 Days Qty: 30 4RF
Continued
metoprolol succinate 50 mg Tablet Extended Release 24 Hr
50 mg PO HS
cyanocobalamin (vitamin B-12) 1,000 mcg Tablet
1,000 mcg PO DAILY
amlodipine 2.5 mg Tablet
2.5 mg PO DAILY
aspirin 81 mg Tablet,Delayed Release (Dr/Ec)
81 mg PO DAILY
glimepiride 2 mg Tablet
2 mg PO DAILY
tamsulosin 0.4 mg Capsule
0.4 mg PO HS
metformin 1,000 mg Tablet
1,000 mg PO BID
olmesartan 40 mg Tablet
40 mg PO HS
PreserVision AREDS 4,296 mcg-226 mg-90 mg Capsule
1 cap PO DAILY
icosapent ethyl 1 gram Capsule
1 g PO DAILY
Discontinued
atorvastatin 20 mg Tablet
20 mg PO HS
Discharge Orders:
Discharge Patient (As Directed); Ordered 02/20/25
Ordered By: Marty Balderas
Discharge Date and Time
Discharge Date/Time: 02/20/25 16:20
Print Language: PANAMANIAN

Documented by User: Dewayne Sarkar MD 02/20/25 22:40
Discharge Summary
Discharge Data
Date of Admission: 02/19/25
Date of Discharge: 02/20/25
Discharge Plan
-
Patient Disposition: Home (Routine Discharge)
Discharge Diagnosis/Procedures: CVA
Diet: Low Cholesterol and Diabetic, Carb Controlled
Activity: As tolerated
Driving Restrictions: As prior to admission
Activity Restrictions/Additional Instructions:
Please follow up with Primary Care Doctor regarding history of Obstructive Sleep Apnea and starting a CPAP machine.
Referrals:
Doreen Kline MD [Active] - in two to four weeks
Shen Watts MD [Family Provider] - (Discuss Obstructive Sleep Apnea and the use of CPAP)
Additional Discharge Medication Instructions: Take 81mg Aspirin for 19 days to complete 21 day course, then STOP.
Take 75mg Clopidogrel (Plavix) for 19 days to complete 21 day course, then CONTINUE INDEFINITELY.
Start taking 40mg Atorvastatin in place of Atorvastatin 20mg.
FOLLOW UP WITH CARDIOLOGY & PRIMARY CARE
Prescriptions:
New
atorvastatin 40 mg Tablet
40 mg PO QPM 30 Days Qty: 30 4RF
clopidogrel 75 mg Tablet
75 mg PO DAILY 19 Days Qty: 19 0RF
clopidogrel 75 mg tablet
75 mg PO DAILY 30 Days Qty: 30 4RF
Continued
metoprolol succinate 50 mg Tablet Extended Release 24 Hr
50 mg PO HS
cyanocobalamin (vitamin B-12) 1,000 mcg Tablet
1,000 mcg PO DAILY
amlodipine 2.5 mg Tablet
2.5 mg PO DAILY
aspirin 81 mg Tablet,Delayed Release (Dr/Ec)
81 mg PO DAILY
glimepiride 2 mg Tablet
2 mg PO DAILY
tamsulosin 0.4 mg Capsule
0.4 mg PO HS
metformin 1,000 mg Tablet
1,000 mg PO BID
olmesartan 40 mg Tablet
40 mg PO HS
PreserVision AREDS 4,296 mcg-226 mg-90 mg Capsule
1 cap PO DAILY
icosapent ethyl 1 gram Capsule
1 g PO DAILY
Discontinued
atorvastatin 20 mg Tablet
20 mg PO HS
Discharge Orders:
Discharge Patient (As Directed); Ordered 02/20/25
Ordered By: Marty Balderas
Discharge Date and Time
Discharge Date/Time: 02/20/25 16:20
Print Language: PANAMANIAN
== END 2025-02-20 16:20 | disposition home or self-care (01) ==
LOC: 4 WEST ACU 15:25
PROVIDERS: Nurse Practitioner Family; Physician Assistant Medical; ADMITTING PHYSICIAN Internal Medicine; ATTENDING PHYSICIAN Family Medicine; CONSULT PHYSICIAN Psychiatry & Neurology Clinical Neurophysiology; EMERGENCY PHYSICIAN Emergency Medicine; FAMILY PHYSICIAN Internal Medicine; OTHER PHYSICIAN Psychiatry & Neurology Neurology
DX: I63.9 Cerebral infarction, unspecified (principal); I16.0 Hypertensive urgency; G51.0 Bell's palsy; H49.20 Sixth [abducent] nerve palsy, unspecified eye; H53.2 Diplopia; I11.9 Hypertensive heart disease without heart failure; E11.9 Type 2 diabetes mellitus without complications; E78.00 Pure hypercholesterolemia, unspecified; H53.8 Other visual disturbances; R00.1 Bradycardia, unspecified; K21.9 Gastro-esophageal reflux disease without esophagitis; I45.10 Unspecified right bundle-branch block; I34.0 Nonrheumatic mitral (valve) insufficiency; E53.8 Deficiency of other specified B group vitamins; G47.33 Obstructive sleep apnea (adult) (pediatric); J34.2 Deviated nasal septum; J34.1 Cyst and mucocele of nose and nasal sinus; I44.0 Atrioventricular block, first degree; M50.322 Other cervical disc degeneration at C5-C6 level; N40.0 Benign prostatic hyperplasia without lower urinary tract symptoms; Z87.891 Personal history of nicotine dependence; Z82.3 Family history of stroke; Z91.018 Allergy to other foods; Z79.82 Long term (current) use of aspirin; Z79.899 Other long term (current) drug therapy; Z79.84 Long term (current) use of oral hypoglycemic drugs
CPT/HCPCS: 70496; 70498; 70551; 80053; 80061; 81003; 81015; 82962; 83036; 84484; 85025; 85610; 85652; 85730; 86850; 86900; 86901; 92610; 93005; 93306; 97161; 97167; 99285; G0378; Q9967